=== PATIENT | female | born 1975 | race Caucasian/White ===

== ENCOUNTER 2020-09-30 19:40 | Emergency (ER) | payer BC ==
[~2020-09-30] VITALS: Ht 167.6 cm; Wt 72.9 kg
--- NOTE | 2020-09-30 23:02 | NUR ---
OPERATING THEATRE TECHNICIAN AT BEDSIDE
[2020-09-30] MEDS ORDERED: IBUP-1984 PO (23:28)
[2020-09-30] MEDS ORDERED: ketorolac tromethamine 15mg/ml inj. IM ONE (23:30)
[2020-09-30 23:49] VITALS: BP 149/70
== END 2020-09-30 23:47 | disposition home or self-care (01) ==
LOC: ER 19:41
DX: M79.671 Pain in right foot (principal); Z79.899 Other long term (current) drug therapy
CPT/HCPCS: 73564; 73630; 93971; 96372; 99284; J1885